=== PATIENT | female | born 1940 | race Caucasian/White ===

== ENCOUNTER → 2020-05-17 08:28 | Outpatient (BNV) | payer MEDICARE, MEDICAID, OTHER, SELFPAY | PROVIDERS: PCP Internal Medicine; Visit Provider Internal Medicine | DX: D72.829 Elevated white blood cell count, unspecified (principal) | CPT/HCPCS: 99213; 99214; G2211 ==

== ENCOUNTER 2020-09-21 13:01 | Outpatient (REF) | payer MEDICARE, MEDICAID, SELFPAY ==
--- NOTE | ~2020-09-21 | XR_ITS ---
EXAMINATION: XR HAND, RIGHT CLINICAL INFORMATION: Diffusion right wrist COMPARISON: None TECHNIQUE: PA, lateral, and oblique views of the right hand. FINDINGS: There is mild reduction of PIP and DIP joint space without bony erosive changes or periarticular spurring. No visible acute fracture or subluxation seen. No abnormality seen involving the first carpometacarpal joint. XR/XR hand RT min 3V IMPRESSION: Mild degenerative changes PIP and DIP joints. No acute fracture or dislocation seen.
--- NOTE | ~2020-09-21 | CT_ITS ---
EXAMINATION: CT ABDOMEN AND PELVIS WITH CONTRAST CLINICAL INFORMATION: Periumbilical swelling, mass/lump COMPARISON: None TECHNIQUE: Multidetector volumetric images were obtained from the superior aspect of the liver through the pubic symphysis following administration 85 mL of Omnipaque 350 intravenous contrast. Sagittal and coronal reformatted images were obtained on the technologist's workstation. Oral contrast: No This CT examination was performed using dose optimization techniques as appropriate, variously including the following: *Automated exposure control *Adjustment of mA and/or kV according to patient size (this includes techniques or standardized protocols for targeted exams where dose is matched to indication/reason for exam; i.e. extremities or head) *Use of iterative reconstruction technique DLP: 329 mGy-cm FINDINGS: LUNG BASES: There is a small right pleural effusion with underlying atelectasis. The left lung bases clear. Heart size is normal. LIVER, GALLBLADDER, AND BILIARY TREE: The liver is normal in size, shape, and attenuation. No focal hepatic lesion or biliary ductal dilatation is present. There are multiple radiopaque gallstones. PANCREAS: Unremarkable. SPLEEN: Unremarkable. ADRENAL GLANDS: Unremarkable. KIDNEYS AND URETERS: The kidneys are normal in size, shape, and attenuation. There is mild cortical thinning of the lower pole of the right kidney. No hydronephrosis, hydroureter, or calculi seen. No perinephric stranding. Bilateral extrarenal kidney pelvis is not seen. BLADDER: Unremarkable. GASTROINTESTINAL TRACT: There is diffuse thickening of the posterior wall of esophagus which could be intraluminal filling defect from food residue, underlying lesion or inflammatory changes. There is scattered stool, diverticuli and gas seen throughout the colon without any significant distention. There is mild thickening of bilateral coronal fascia. Oral contrast opacified small bowel loops are normal caliber. No free air seen. There is mild free fluid visualized in the pelvis. ABDOMINAL WALL: No significant hernia is appreciated. LYMPH NODES: Normal. VASCULAR: The abdominal aorta is normal caliber with an atherosclerotic calcification. PELVIC VISCERA: The large intrapelvic irregular solid mass 12.1 x 8.8 x13.9 cm arising superior to uterus likely extrauterine origin. It may be arising from the left ovary. Previously the same mass measured 7.8 x 4.[address] exam 09/20/2010. The uterus is anteverted and appears unremarkable. OSSEOUS STRUCTURES: No lytic or sclerotic process seen. There is mild degenerative disc changes and spondylosis at T12-L1 disc level. CT/CT abdomen pelvis w con IMPRESSION: 1. Large lobulated mass in the pelvis likely arising from the left ovary depressing the anterior uterus inferiorly and posteriorly. There is some associated fluid surrounding this mass with central hypodensity likely necrosis or edema. Differential diagnosis includes an exophytic uterine mass. 2. Mild constipation. 3. Mild thickening of the bilateral coronal fascia in the paracolic gutter.. 4. Mild constipation with scattered diverticuli throughout the colon. No evidence of diverticulitis. 5. There is filling defect along the posterior wall of the stomach. Question food debris versus underlying lesion. Recommend endoscopy. 6.Small right pleural effusion. 7.Cholelithiasis.
[2020-09-21 14:27] LABS: Basophils Absolute Auto 0.1 X10*3/uL (0.0-0.2); Basophils Percent Auto 0.9 % (0-2); Eosinophils Absolute Auto 0.8 X10*3/uL (0.0-0.4); Hematocrit 37.7 % (37-47); Hemoglobin 11.7 g/dl (12.0-16.0); Imm Gran Abs Auto 0.04 X10*3/uL (0.00-0.03); Imm Gran Pct Auto 0.4 % (0.0-0.4); Lymphocytes Absolute Auto 5.1 X10*3/uL (1.2-4.9); Lymphocytes Percent Auto 44.9 % (20-40); MANUAL DIFF FLAG SCAN; Mean Corpuscular Hemoglobin 25.7 pg (27.0-33.0); Mean Corpuscular Volume 82.7 fL (80-98); Mean Platelet Volume 11.2 fL (9.4-12.3); Monocytes Absolute Auto 0.8 X10*3/uL (0.1-1.2); Monocytes Percent Auto 7.2 % (2-11); Neutrophils Absolute Auto 4.5 X10*3/uL (2.0-8.3); Neutrophils Percent Auto 39.6 % (45-73); Platelet Count 318 X10*3/uL (160-400); Red Blood Count 4.56 X10*6/uL (4.20-5.50); Red Cell Distribution Width 16.7 % (11.0-16.0); SCAN SMEAR FLAG 1; White Blood Count 11.3 X10*3/uL (4.8-10.8)
[2020-09-21 14:48] LABS: SLIDE REVIEW VERIFIED
[2020-09-21 14:50] LABS: Alanine Aminotransferase < 6 U/L (0-31); Albumin Level 3.8 g/dL (3.5-5.0); Alkaline Phosphatase 101 U/L (39-117); Anion Gap 11 (12-20); Aspartate Amino Transferase 11 U/L (5-31); Bilirubin Total 0.3 mg/dL (0.0-1.0); Blood Urea Nitrogen 16 mg/dL (9-16); C Reactive Protein 1.55 mg/dL (< or = 0.50); Calcium 9.7 mg/dL (8.4-10.2); Carbon Dioxide 29 mmol/L (22-29); Chloride 105 mmol/L (96-108); Estimated Glomerular Filt Rate 59; Glucose Random 92 mg/dL (60-115); Potassium 4.5 mmol/L (3.3-5.1); Rheumatoid Factor < 15.0 IU/mL (<15.0); Sodium 140 mmol/L (135-145); Total Protein 7.3 g/dL (6.5-8.0)
[2020-09-21 15:21] LABS: Erythrocyte Sedimentation Rate 28 MM/HR (0-20)
[2020-09-21] MEDS: Barium Sulfate Oral (Mocha) 450 ML ORAL.SUSP 900 ML PO (15:48)
[2020-09-21] MEDS: iohexoL 350 MG/ML 100 ML INFUS..BTL 85 ML IV (15:48)
[2020-09-23 13:06] LABS: Anti Nuclear Antibody Screen NEGATIVE (NEGATIVE)
== END 2020-09-21 13:02 | disposition home or self-care (01) ==
LOC: HO.CT 13:01
PROVIDERS: PCP Internal Medicine; Visit Provider Internal Medicine
DX: R19.05 Periumbilic swelling, mass or lump (principal); M25.431 Effusion, right wrist
CPT/HCPCS: 36415; 73130; 74177; 80053; 84550; 85025; 85652; 86038; 86039; 86140; 86431; Q9967

== ENCOUNTER 2020-11-17 09:52 | Day surgery (SDC) | payer MEDICARE, SELFPAY ==
[2020-11-16 08:47] VITALS: BMI 29.7
--- NOTE | 2020-11-16 09:58 | HO.ANESPROP2 ---
Documented by User: Autumn Dash NP 11/16/20 10:00 HPI - Anesthesia Eval Consult details Narrative: 80yo F for Upper Endoscopy PMFSH Active Problems Active Problems: All Active Problems (Updated 05/17/20 @ 12:32 by Birdie Taveras MD) Leucocytosis (Chronic) Past Medical History Medical History (Updated 05/17/20 @ 12:32 by Birdie Taveras MD) Basal cell carcinoma Chronic kidney disease GERD (gastroesophageal reflux disease) HTN (hypertension) Hypercholesterolemia Leukocytosis Family History Family History (Updated 05/17/20 @ 07:52 by Nancie Henriquez) Father Heart attack Family/Other Colon cancer Other Diabetes Surgical History Surgical History (Updated 05/17/20 @ 08:50 by Birdie Taveras MD) Hx of appendectomy Social History Social History (Updated 05/17/20 @ 08:49 by Nancie Henriquez) Alcohol intake: former Patient Tobacco Use Status: Never used Tobacco Use of substances other than those prescribed or required for medical reasons: No Are you DNR?: No Advance Directives: No Advance Directives Information Provided: Yes Meds Allergies Allergy/AdvReac Type Severity Reaction Status Date / Time No Known Allergies Allergy Unverified 11/18/19 18:01 Home Medications Medication Instructions Recorded Confirmed Last Taken Type amlodipine 2.5 mg tablet 1 tab PO DAILY 05/17/20 05/17/20 Unknown History aspirin 81 mg tablet,delayed 81 mg PO DAILY 05/17/20 05/17/20 Unknown History release omeprazole 20 mg capsule,delayed 1 cap PO DAILY 05/17/20 05/17/20 Unknown History release simvastatin 20 mg tablet 1 tab PO BEDTIME 05/17/20 05/17/20 Unknown History valsartan 40 mg tablet 1 tab PO DAILY 05/17/20 05/17/20 Unknown History Exam Exam Date and Time: November 16, 2020 0958 Height,Weight and Vital Signs: Height 5 ft Weight 68.946 kg Pertinent Lab Results Pertinent Lab Results: Laboratory Tests 09/21/20 09/21/20 13:25 13:25 WBC 11.3 H Hgb 11.7 L Hct 37.7 Plt Count 318 Sodium 140 Potassium 4.5 Chloride 105 Carbon Dioxide 29 BUN 16 Creatinine 0.92 Assessment and Plan Assessment Anesthesia Assessment: Chart Reviewed Documented by User: Nancie Ragsdale MD 11/17/20 10:38 PMF Past Medical History Medical History (Updated 05/17/20 @ 12:32 by Birdie Taveras MD) Basal cell carcinoma Chronic kidney disease GERD (gastroesophageal reflux disease) HTN (hypertension) Hypercholesterolemia Leukocytosis Family History Family History (Updated 05/17/20 @ 07:52 by Nancie Henriquez) Father Heart attack Family/Other Colon cancer Other Diabetes Family history of problems with anesthesia: No Surgical History Surgical History (Updated 05/17/20 @ 08:50 by Birdie Taveras MD) Hx of appendectomy History of Problems with Anesthesia: No Social History Social History (Updated 05/17/20 @ 08:49 by Nancie Henriquez) Alcohol intake: former Patient Tobacco Use Status: Never used Tobacco Use of substances other than those prescribed or required for medical reasons: No Are you DNR?: No Advance Directives: No Advance Directives Information Provided: Yes Meds Allergies Allergy/AdvReac Type Severity Reaction Status Date / Time No Known Allergies Allergy Unverified 11/18/19 18:01 Home Medications Medication Instructions Recorded Confirmed Last Taken Type amlodipine 2.5 mg tablet 1 tab PO DAILY 05/17/20 05/17/20 Unknown History aspirin 81 mg tablet,delayed 81 mg PO DAILY 05/17/20 05/17/20 Unknown History release omeprazole 20 mg capsule,delayed 1 cap PO DAILY 05/17/20 05/17/20 Unknown History release simvastatin 20 mg tablet 1 tab PO BEDTIME 05/17/20 05/17/20 Unknown History valsartan 40 mg tablet 1 tab PO DAILY 05/17/20 05/17/20 Unknown History Exam Airway Mallampati Class: II (Has 3 teeth not loose) TM Dist: >3cm Neck ROM: Full Heart: rrr Lungs: cta Assessment and Plan Assessment Anesthesia Assessment: Anesthesia Plan Discussed and Chart Reviewed Final Anesthetic Review Family History of Problems with Anesthesia: No History of Problems with Anesthesia: No NPO: Yes ASA Class: III Final Preanesthetic Review: No Changes in Pt Med Stat, Meds/Allgs Chart Reviewed and Consent Obtained/Reviewed Patient Risk: Intermediate Procedure Risk: Intermediate Anesthetic Plan Anesthetic Plan: MAC: Disposition: Standard PACU
[2020-11-17 10:31] VITALS: BP 169/68; PULSE 66; RESP 16; TEMP 36.4; O2SAT 97
[2020-11-17] MEDS: Lactated Ringers 1,000 ML 100 ML IVCONT (11:07)
[2020-11-17 11:45] VITALS: BP 137/55; PULSE 63; RESP 16; TEMP 36.3; O2SAT 96
--- NOTE | 2020-11-17 11:50 | PM.OP ---
Brief Operative Note Date of Service: 11/17/20 Pre-op diagnosis: Abnormal CT of stomach, GERD Post-op diagnosis: other (Hiatal hernia, Gastric polyps) Procedure: EGD with biopsies Surgeon: Cipriano Serrano Anesthesia: MAC Was an Coding Technician used for this Procedure?: No Estimated blood loss (mL): 3.0 Pathology: other (A. Gastric polyps) Condition: stable Disposition: PACU
[2020-11-17 12:00] VITALS: BP 155/61; PULSE 56; RESP 16; TEMP 36.3; O2SAT 96
--- NOTE | 2020-11-17 18:16 | OP_ITS ---
SURGEON: Cipriano Serrano MD INDICATIONS: The patient presents for evaluation of abnormal CT scan of her stomach and gastroesophageal reflux. Full consent has been obtained from her for this, including risks of bleeding and perforation. PREOPERATIVE DIAGNOSIS: Abnormal CT scan of the stomach. POSTOPERATIVE DIAGNOSIS: PROCEDURE PERFORMED: Esophagogastroduodenoscopy with biopsies. ESTIMATED BLOOD LOSS: COMPLICATIONS: ANESTHESIA: Monitored anesthesia care. ASSISTANTS: SPECIMENS: POSTOPERATIVE DIAGNOSES: Abnormal AT scan of the stomach, gastric polyps, hiatal hernia. DESCRIPTION OF PROCEDURE: The patient was placed in the left lateral decubitus position. The Olympus video gastroscope was passed in the posterior oropharynx and upper esophagus under direct vision. The scope was passed slowly to the distal esophagus. The gastroesophageal junction appeared normal at 30 cm. There was no sign of any esophagitis nor Devlin's esophagus. The scope entered into the stomach. There was a moderate-sized hiatal hernia. The scope was advanced to pylorus and the duodenum was cannulated to the descending portion. The duodenum including the bulb appeared normal without mass or ulceration. Scope was withdrawn back in the stomach. The gastric antrum and body appeared normal with good peristalsis. The scope was retroflexed visualizing the proximal stomach carefully. There were multiple hyperplastic appearing gastric polyps. There was no sign of any mass or ulceration. In the forward viewing position the gastric polyps were noted as well and there was no sign of any mass nor other mucosal abnormality. Multiple biopsies were obtained from some of the gastric polyps. The scope was withdrawn back into the esophagus. The esophageal mucosa appeared normal. The scope was withdrawn from the patient. She tolerated the procedure well and was returned to the recovery area in stable condition. IMPRESSION: 1. Gastric polyps. 2. Hiatal hernia. PLAN: The results of the biopsies will be checked. At this point, I do not think she will need any further endoscopic nor GI evaluation. She was advised to continue her omeprazole for her reflux and to stay off aspirin for another week. She was advised to follow up with her doctor in [place] in regard to the recent biopsy of the pelvic mass. She will see me on a PRN basis. This has been discussed with her daughter, Shirley. MD NIDIA Monson/MEHUL / [id number] [facility] HOSPITALRuben
== END 2020-11-17 13:20 | disposition home or self-care (01) ==
PROVIDERS: PCP Internal Medicine; Visit Provider Internal Medicine
PROC: 0DJ08ZZ Inspection of Upper Intestinal Tract, Via Natural or Artificial Opening Endoscopic (ICD-10-PCS; CPT 43235; principal; 2020-11-17 11:10)
DX: K21.9 Gastro-esophageal reflux disease without esophagitis (principal); K31.7 Polyp of stomach and duodenum; K44.9 Diaphragmatic hernia without obstruction or gangrene; I10 Essential (primary) hypertension; C44.319 Basal cell carcinoma of skin of other parts of face; R19.00 Intra-abdominal and pelvic swelling, mass and lump, unspecified site; Z79.899 Other long term (current) drug therapy; Z79.82 Long term (current) use of aspirin
CPT/HCPCS: 43239; 88305; 88342

== ENCOUNTER → 2022-04-24 09:36 | Outpatient (REF) | payer MEDICARE, MEDICAID, SELFPAY ==
--- NOTE | 2022-04-24 09:39 | CA_ITS ---
Transthoracic Echocardiogram Patient (Last, First, Middle): Marianela Aranda, Gender: Female Date of : 1940 Age: 82 Procedure Date: 04/24/2022 Procedure Type: Transthoracic Echocardiogram Location: OP Height: 152.4 cm Weight: 68.95 kg BSA: 1.66 m2 Heart Rate: bpm BP: 110 / 60 mmHg Home Fire Alarm Installer: TO Referring MD: Sergio Haskins MD Symptoms: I10 HTN I42.9 CARDIOMYOPATHY Study Quality: Technically Difficult/multiple IV attempts ECG Rhythm: Sinus Conclusions: - The left ventricular systolic function is normal. The visually estimated ejection fraction is between 55-60%. - Aortic valve sclerosis but no significant stenosis. - Unable to administer contrast due to lack of IV after multiple times. Findings Procedure Information The quality of the study was technically difficult. The study quality is limited by patients body habitus. Left Ventricle Normal left ventricular cavity size. There is normal left ventricular wall thickness. The left ventricular systolic function is normal. The visually estimated ejection fraction is between 55-60%. There is paradoxical septal motion consistent with a left bundle branch block. Diastolic function is normal for age. Right Ventricle Normal right ventricular cavity size and systolic function. Atria Both atria are normal in size. Aortic Valve There is a normal trileaflet aortic valve. There is mild calcification of the aortic valve. The mean gradient is 8 mmHg. The aortic valve area is 1.50 cm2. There is trace (trivial) aortic valve regurgitation. No more than mild aortic stenosis. Mitral Valve The mitral valve appears normal. There is trace mitral valve regurgitation. There is no mitral valve stenosis. Pulmonic Valve The pulmonic valve is likely normal. Tricuspid Valve There is trace tricuspid valve regurgitation. There is no evidence of pulmonary hypertension. Great Vessels The asc aorta is normal in size. Venous The inferior vena cava is normal in size and collapses greater than 50% with inspiration. Pericardium/Pleural There is no evidence of pericardial effusion. Prior Study Comparison No prior study available for comparison. Measurements 2D Linear Measurements IVSd: 1.01 0.6-0.9/0.6-1.0 cm LVIDd: 5.01 3.9-5.3/4.2-5.9 cm LVIDd Index: 3.02 2.4-3.2/2.2-3.1 cm/m2 LVIDs: 3.60 2.0-3.6 cm LVPWd: 1.00 0.7-1.1 cm LA Diam: 3.50 2.7-3.8/3.0-4.0 cm LAIDs Index: 2.11 1.5-2.3 cm/m2 LV Mass: 229.00 67-162/88-224 g LV Mass Index: 137.95 43-95/49-115 g/m2 LVOT Diam: 1.90 3.0+(-)1.3 cm Mitral Valve MV VTI: 0.36 MV Pk Demian: 1.16 MV Mn Demian: 0.64 MV Pk Grad: 5.00 MV Mn Grad: 2.00 MV Pk E: 0.85 MV PK A: 1.11 MV Decel Time: 197.00 E/A: 0.80 E'Lateral: 7.29 E'Medial: 3.48 E/E' Med: 24.40 E/E' Lat: 11.70 PHT: 58.00 MVA PHT: 3.79 MVA Continuity: 1.67 Decel Mcintosh: 4.32 Aortic Valve AoV Pk Demian: 2.10 AoV Mn Demian: 1.28 AoV VTI: 0.41 AoV Pk Grad: 18.00 Aov Mn Grad: 8.00 JASON Cont.VTI: 1.50 LVOT LVOT Pk Demian: 0.88 LVOT Mn Demian: 0.62 LVOT VTI: 0.21 LVOT Pk Grad: 3.00 LVOT Mn Grad: 2.00 LVOT Diam: 1.90 LVOT Area: 2.84 Diastolic Function MV Pk E: 0.85 MV Pk A: 1.11 E/A: 0.80 E'Medial: 3.48 E/E' Med: 24.40 E' Laterial: 7.29 E/E' Lat: 11.70 Right Ventricle TAPSE (mm): 24.80 TVS' Demian: 11.20 Tricuspid Valve TR Pk Demian: 2.84 TR Pk Grad: 32.00 Great Vessels Aorta Sinus of Valsalva: 2.89 2.0-3.[address] Ridge: 2.29 1.7-3.4 cm Ao Asc: 3.60 2.1-3.4 cm Updated in Other Vendor System with Status of Final Sigifredo Hannon MD electronically signed on 04/25/2022 4:55:01 PM with status of Final
== END ==
LOC: HO.CARD 09:36
PROVIDERS: PCP Internal Medicine; Visit Provider Internal Medicine Cardiovascular Disease
DX: I10 Essential (primary) hypertension (principal); I42.9 Cardiomyopathy, unspecified
CPT/HCPCS: 93306

== ENCOUNTER 2023-12-03 09:19 | Outpatient (REF) | payer MEDICARE, MEDICAID, SELFPAY ==
[2023-12-03 11:14] LABS: Basophils Absolute Auto 0.1 X10*3/uL (0.0-0.2); Basophils Percent Auto 1.1 % (0-2); Eosinophils Absolute Auto 0.4 X10*3/uL (0.0-0.4); Eosinophils Percent Auto 3.5 % (0-4); Hematocrit 32.9 % (37.0-47.0); Imm Gran Abs Auto 0.03 X10*3/uL (0.00-0.03); Imm Gran Pct Auto 0.3 % (0.0-0.4); Lymphocytes Absolute Auto 5.4 X10*3/uL (1.2-4.9); Lymphocytes Percent Auto 49.6 % (20-40); MANUAL DIFF FLAG SCAN; Mean Corpuscular HGB Conc 30.4 g/dl (31.0-35.0); Mean Corpuscular Hemoglobin 21.7 pg (27.0-33.0); Mean Corpuscular Volume 71.4 fL (80.0-98.0); Mean Platelet Volume 10.2 fL (9.4-12.3); Monocytes Absolute Auto 0.7 X10*3/uL (0.1-1.2); Monocytes Percent Auto 6.8 % (2-11); Neutrophils Absolute Auto 4.2 x10*3/uL (2.0-8.3); Neutrophils Percent Auto 38.7 % (45-73); Platelet Count 457 X10*3/uL (160-400); Red Blood Count 4.61 X10*6/uL (4.20-5.50); Red Cell Distribution Width 20.3 % (11.0-16.0); SCAN SMEAR FLAG 1; White Blood Count 10.9 X10*3/uL (4.8-10.8)
[2023-12-03 11:30] LABS: Alanine Aminotransferase 6 U/L (0-31); Albumin Level 3.9 g/dL (3.5-5.0); Anion Gap 13 (12-20); Aspartate Amino Transferase 11 U/L (5-31); Bilirubin Direct 0.2 mg/dL (0.0-0.5); Bilirubin Total 0.5 mg/dL (0.0-1.0); Blood Urea Nitrogen 16 mg/dL (9-16); Calcium 9.9 mg/dL (8.4-10.2); Carbon Dioxide 26 mmol/L (22-29); Chloride 104 mmol/L (96-108); Cholesterol 167 mg/dL (<200); Estimated Glomerular Filt Rate 60; Glucose Random 110 mg/dL (60-115); Potassium 4.7 mmol/L (3.3-5.1); Sodium 138 mmol/L (135-145); Total Protein 7.7 g/dL (6.5-8.0); Triglycerides 102 mg/dL (<150)
[2023-12-03 11:31] LABS: Alkaline Phosphatase 110 U/L (39-117); HDL Cholesterol 60 mg/dL (>40); LDL Cholesterol Calculated 87 mg/dL (<100)
[2023-12-03 11:52] LABS: SLIDE REVIEW VERIFIED
[2023-12-03 12:00] LABS: Reflex LDLD? No
== END 2023-12-03 09:20 | disposition home or self-care (01) ==
LOC: HO.HHCL 09:19
PROVIDERS: Visit Provider Internal Medicine
DX: Z00.00 Encounter for general adult medical examination without abnormal findings (principal); I10 Essential (primary) hypertension
CPT/HCPCS: 36415; 80048; 80061; 80076; 85025

== ENCOUNTER 2024-04-26 08:46 | Outpatient (REF) | payer MEDICARE, MEDICAID, SELFPAY ==
--- OUTSIDE RECORDS SUMMARY | 2024-04-26 09:15 | XMS_ITS | Clinical Summary ---
Author Organization [employer] Address [address] [facility] [address] [place] [address] Care Team Providers Care Resource Conservation Manager Name Role Phone Yury Klein MD Primary Care Provide r Allergies Active Allergy Reactions Criticality Noted Date Comments Lisinopril Cough 02/13/2017 Medications celecoxib (CeleBREX) 100 MG capsuleIndication s:Pain TAKE 1 CAPSULE BY MOUTH EVERY DAY 30 capsule 3 Active furosemide (Lasix) 20 MG tablet Take 10 mg by mouth in the morning. 2 Active Aspirin EC Adult Low Dose 81 MG EC tablet TAKE 1 TABLET BY MOUTH DAILY IN THE MORNING 90 tablet 3 4 Active amLODIPine (Norvasc) 10 MG tablet TAKE 1 TABLET BY MOUTH ONCE DAILY 90 tablet 3 4 Active acetaminophen (Tylenol 8 Hour) 650 MG ER tabletIndications :Pain TAKE 1 TABLET BY MOUTH EVERY 8 HOURS NEEDED FOR MILD OR MODERATE PAIN DO NOT BREAK, CRUSH, DISSOLVE OR CHEW 90 tablet 2 4 Active omeprazole (PriLOSEC) [address] capsule TAKE 1 CAPSULE BY MOUTH EVERY DAY BEFORE A MEAL 90 capsule 4 Active valsartan (Diovan) 80 MG tabletIndications :Essential hypertension TAKE 1 TABLET BY MOUTH EVERY DAY 30 tablet 3 5 Active Active Problems Problem Noted Date Diagnosed Date Elevated blood sugar level 12/09/2023 Assessment & Plan (03/09/2024 11:59 AM EST): FBS 110 Will repeat Assessment & Plan (12/09/2023 11:58 AM EDT): FBS 110 Will repeat in 3 months Iron deficiency anemia 12/09/2023 Assessment & Plan (03/09/2024 11:59 AM EST): Last visit I recommended to Obtain iron studies, B12 and folate, she did not do it, ordered again Seen in the apst by Hematology for lymphocytosis that has since resolved Assessment & Plan (12/09/2023 12:01 PM EDT): New onset Obtain iron studies, B12 and folate Seen in the apst by Hematology for lymphocytosis that has since resolved Routine physical examination 05/23/2022 Assessment & Plan (05/27/2023 10:43 AM EDT): Pt here for a routine physical exam, exam unchanged Preventative health care (V70.0). Mammogram: Given age ok to stop Pap Smear: NL: 03/06/2010 with cervical polyp pt elected to stop screening Colonoscopy: NL : 10/18/2010 (external and internal hemorrhoids 10 yr f/u ,recommended. Pt would like to stop, given the fact that she is over 80 ok to stop Vaccines: Td: 09/27/2020 Pneumovax: 03/30/2010 Prevnar: 11/03/2014 Zoster: 09/27/2014 Dexa scan: 12/19/2011 Normal T-score of -0.8 Assessment & Plan (05/23/2022 11:19 AM EDT): Pt here for a routine physical exam, exam unchanged Preventative health care (V70.0). Mammogram: Given age ok to stop Pap Smear: NL: 03/06/2010 with cervical polyp pt elected to stop screening Colonoscopy: NL : 10/18/2010 (external and internal hemorrhoids 10 yr f/u ,recommended. Pt would like to stop, given the fact that she is over 80 ok to stop Vaccines: Td: 03/30/2010, needs booster Pneumovax: 03/30/2010 Prevnar: 11/03/2014 Zoster: 09/27/2014 Dexa scan: 12/19/2011 Normal T-score of -0.8 Lymphocytosis 05/23/2022 Assessment & Plan (05/23/2022 12:27 PM EDT): Under the care of mechanical engineering specialist Dr. Birdie Taveras. Last note on record 11/17/2019 She is being evaluated to r/o indolent Chronic Myeloproliferative disorder. 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 On exam she had a palpable superficial mass in her periumbilical area CT of her abdomen showed: Large lobulated mass in the pelvis likely arising from the left ovary depressing the anterior uterus inferiorly and posteriorly. There is some associated fluid surrounding this mass with central hypodensity likely necrosis or edema. Differential diagnosis includes an exophytic uterine mass. Pt eventually underwent BRITTANY and BSOO by Dr Rosa correa 12/27/2020. Pathology showed a Fibrothecoma ( bening ) Gastric polyp 04/07/2022 Assessment & Plan (04/09/2022 10:52 AM EST): CT of Abdomen 2020 showed an incidental finding of: There is filling defect along the posterior wall of the stomach. Question food debris versus underlying lesion. Recommend endoscopy. Pt was eventually seen by Dr. Serrano and underwent an EGD 11/17/2020 it showed a hiatal hernia and gastric polyps he recommended no further GI evaluation. The pathology was benign Bradycardia 06/30/2018 Actinic keratosis 02/06/2018 Essential hypertension 12/06/2014 Assessment & Plan (03/09/2024 12:08 PM EST): Pt here for a f/u BP today elevated she is on a regimen of: Amlodipine 10 mg po daily, Diovan 40 mg po daily and Furosemide 20 mg po daily Most recent electrolytes, Bun and Creatinine done on: 12/03/2023 were within normal limits. Plan: Increase Valsartan to 80 mg po daily F/u 2 months patient advised to adhere to a low sodium diet, encouraged about medication compliance Assessment & Plan (12/09/2023 11:51 AM EDT): Pt here for a f/u BP today controlled she is on a regimen of: Amlodipine 10 mg po daily, Diovan 40 mg po daily and Furosemide 20 mg po daily Most recent electrolytes, Bun and Creatinine done on: 12/03/2023 were within normal limits. Plan: Continue current regimen F/u 4 months patient advised to adhere to a low sodium diet, encouraged about medication compliance Assessment & Plan (05/27/2023 10:41 AM EDT): Pt here for a f/u BP today controlled she is on a regimen of: Amlodipine 10 mg po daily, Diovan 40 mg po daily and Furosemide 20 mg po daily Most recent electrolytes, Bun and Creatinine done on: 05/20/2022 were within normal limits. Will repeat Plan: Continue current regimen F/u 4 months patient advised to adhere to a low sodium diet, encouraged about medication compliance Assessment & Plan (05/07/2022 9:58 AM EST): Pt here for a f/u BP today stable she is on a regimen of: Amlodipine 10 mg po daily, Diovan 40 mg po daily and Furosemide 20 mg po daily Most recent electrolytes, Bun and Creatinine done on: 05/25/2020 were within normal limits. 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 Pt with c/o new lesion right cheek Pt states presented back in August Denies any increase in size, denies any bleeding Exam does seem suggestive of Basal Cell Skin CA Referral placed with Dr Mederos back in 12/03/2023. Today they are telling me the appointment is scheduled for July 2024 Assessment & Plan (12/09/2023 12:33 PM EDT): Images from the original note were not included. Pt with c/o new lesion right cheek Pt states presented back in August Denies any increase in size, denies any bleeding Exam does seem suggestive of Basal Cell Skin CA Referral placed with Dr Mederos back in 12/03/2023. Today I asked by DORINA to contact their office to ensure patient receives an appointment. Assessment & Plan (05/23/2022 8:49 AM EDT): Pt is s/p Mohs resection 04/2021 She was under the care of Housekeeper And Laundry Assistant Dr Mckinney ( [phone])and subsequently Dr. Akers Left bundle branch block 01/03/2010 Assessment & Plan (05/27/2023 10:42 AM EDT): Chronic LBBB, seen by [facility] last 12/27/2023 Needs to avoid BB due to bradycardia Assessment & Plan (05/23/2022 8:43 AM EDT): Chronic LBBB, seen by [facility] last 11/08/2013 Needs to avoid BB due to bradycardia Chronic kidney disease, stage II (mild) 03/03/18 60 Gastroesophageal reflux disease 03/03/1959 Hyperlipidemia 03/03/1959 Assessment & Plan (03/09/2024 12:00 PM EST): Patient with elevated lipids. Most recent lipid profile from: Lab Results Component Value Date TRIG 102 12/03/2023 TRIG 109 05/20/2022 CHOL 167 12/03/2023 LDLCHOLCAL 87 12/03/2023 HDL 60 12/03/2023 Currently not on any statin . For now will continue with current regimen advised to try to adhere to a low cholesterol diet, counseled and educated about diet and exercise Assessment & Plan (12/09/2023 11:54 AM EDT): Patient with elevated lipids. Most recent lipid profile from: Lab Results Component Value Date TRIG 102 12/03/2023 TRIG 109 05/20/2022 CHOL 167 12/03/2023 LDLCHOLCAL 87 12/03/2023 HDL 60 12/03/2023 Currently not on any statin . For now will continue with current regimen advised to try to adhere to a low cholesterol diet, counseled and educated about diet and exercise Assessment & Plan (05/27/2023 10:42 AM EDT): Patient with elevated lipids. Most recent lipid profile from: 05/20/2022 shows a total cholesterol of: 182 triglycerides of: 109 HDL of: 61 and LDL of: 100 Currently on a regimen of: Simvastatin 20 mg po q pm . For now will continue with current regimen Will repeat Lipid profile advised to try to adhere to a low cholesterol diet, counseled and educated about diet and exercise Assessment & Plan (05/23/2022 8:47 AM EDT): Patient with elevated lipids. Most recent lipid profile from: 05/20/2022 shows a total cholesterol of: 182 triglycerides of: 109 HDL of: 61 and LDL of: 100 Currently on a regimen of: Simvastatin 20 mg po q pm . For now will continue with current regimen advised to try to adhere to a low cholesterol diet, counseled and educated about diet and exercise Resolved Problems Problem Noted Date Diagnosed Date Resolved Date COVID-19 04/09/2022 05/23/2022 Assessment & Plan (04/09/2022 12:47 PM EST): Pt with new onset of non productive cough and generalized malaise. Exam wnl, afebrile, lungs clear, vital signs stable pulse oxymetry normal Covid-19 positive. Plan: Recommended isolation, contact precautions, Paxlovid f/u if symptoms do not improve or worsen Pt advised to decrease her Amlodipine by 50% x 8 days Instructions written and given to granddaughter who verbalized understanding as well as the patient Chest x-ray ordered Subacute cough 04/09/2022 05/23/2022 Assessment & Plan (04/09/2022 12:47 PM EST): Pt with new onset of non productive cough and generalized malaise. Exam wnl, afebrile, lungs clear, vital signs stable pulse oxymetry normal Covid-19 positive. Plan: Recommended isolation, contact precautions, Paxlovid f/u if symptoms do not improve or worsen Pt advised to decrease her Amlodipine by 50% x 8 days Instructions written and given to granddaughter who verbalized understanding as well as the patient Encounters Date Type Department Care Team Description 03/09/2024 11:15 AM EST Office Visit [facility] [address] [place] [address] Yury Klein MD Essential hypertension (Primary Dx); Iron deficiency anemia, unspecified iron deficiency anemia type; Basal cell carcinoma of cheek; Elevated blood sugar level; Mixed hyperlipidemia 03/09/2024 Travel 02/26/2024 Telephone [facility] [address] [place] [address] Yury Klein MD Chart Prep 02/01/2024 Refill [facility] [address] [place] [phone] Yury Klein MD from Last 3 Months Immunizations Name Administration Dates Next Due Influenza injectable quadriv alent IIV4 with preservative 02/13/2017 Influenza injectable quadriv alent preservative free 01/10/2022,04/27/2019,04/20/2015 Influenza, High Dose Seasona l, Preservative Free 12/09/2023,11/27/2017 Influenza, IIV3, injectable 11/02/2019, 1 Influenza, Split (incl. lucas fied surface antigen) 12/02/2011 Pfizer Covid-19 Vaccine 12+ 12/09/2023 Pneumococcal Conjugate PCV 13 11/03/2014 Pneumococcal Polysaccharide PPSV23 03/30/2010 TD (adult), 2 Lf tetanus tox oid, preservative free, adsorbed 03/30/2010 Tdap 09/27/2020 Zoster, live 09/27/2014 Social History Tobacco Use Types Packs/Day Years Used Date Smoking Tobacco: Never Passive Smoke Exposure: Never Smokeless Tobacco: Never Tobacco Cessation:Counseling Given: Not Answered Depression Answer Date Recorded Patient Health Questionnaire-9 Score 0 05/27/2023 Patient Health Questionnaire-9 Score 0 05/27/2023 Last PHQ-9: Questionnaire Data Not on file 0 05/27/2023 Housing Stability Answer Date Recorded What is your housing situation today? I have [facility] 05/20/[address] you li ve. Do you have problems with any of the following? None of the above 05/20/2023 Food Insecurity Answer Date Recorded Within the past 12 months, y ou worried that your food would run out before you got money to buy more: Sometimes True 2023 Within the past 12 months,th e food you bought just didn't last and you didn't have enough money to get more: Sometimes True 05/20/2023 Transportation Answer Date Recorded In the past 12 months, has l ack of transportation kept you from medical appts, meetings, work or from getting things needed for daily living? No 05/20/2023 Utilities Answer Date Recorded In the past 12 months, has t he electric, gas, oil or water company threatened to shut off services in your home? No 05/20/2023 Depression Answer Date Recorded Patient Health Questionnaire-2 Score 0 05/27/2023 Internet Access Answer Date Recorded Internet Access Q1 Yes 11/03/2023 Internet Access Q2 Not on file 11/03/2023 Comments Unknown Sex and Gender Information Value Date Recorded Sex Assigned at Female 12/31/2021 10:21 AM EDT Legal Sex Female 10:21 AM EDT Gender Identity Female 12/31/2021 10:21 AM EDT Sexual Orientation Straight 12/31/2021 10 :21 AM EDT Last Filed Vital Signs Vital Sign Reading Time Taken Comments Blood Pressure 160/78 03/09/2024 11:12 AM EST Pulse 60 03/09/2024 11:12 AM EST Temperature 36.1 ??C (96.9 ??F) 03/09/2024 11:[address] Respiratory Rate 20 03/09/2024 11:12 AM EST Oxygen Saturation 98% 03/09/2024 11:12 AM EST Inhaled Oxygen Concentration - - Weight 69 kg (152 lb 3.2 oz) 03/09/2024 11:12 AM EST Height 152.4 cm (5') 03/09/2024 11:12 AM EST Body Mass Index 29.72 03/09/2024 11:12 AM EST Plan of Treatment Upcoming Encounters Date Type Department Care Team (Late st Contact Info) Description 05/11/2024 10:15 AM EDT Office Visit [facility] [address] [place] [address] Yury Klein MD [address] [place] [address] Health Maintenance Due Date Last Done Comments Derm Melanoma Skin Check 1940 Zoster Vaccines (2 of 3) 11/22/2014 09/27/2014 RSV Patients and Patients Aged 60 years or older (1 - 1-dose 75+ series) 02/24/2015 SDOH Screening 05/19/2024 05/20/2023 Depression Screening 05/26/2024 05/27/2023, 05/27/19 24 Alcohol/Substance Use Screening 12/08/2024 12/09/2023 Diabetes: Hemoglobin A1C 03/09/2025 03/09/2024 Tobacco Screening 03/09/2025 03/09/2024 Lipid Panel 12/02/2028 12/03/2023, 05/02, 05/25/2020 DTaP/Tdap/Td Vaccines (2 - Td or Tdap) 09/27/2030 09/27/2020, 03/30/2010 Pneumococcal Vaccine: 50+ Years Completed 11/03/2014, 03/30/2010 COVID-19 Vaccine Completed 12/09/2023, 12/2021, 03/12/2021, Additional history exists Influenza Vaccine Completed 12/09/2023, , 11/02/2019, Additional history exists HIB Vaccines Aged Out No longer eligi ble based on patient's age to complete this topic HPV Vaccines Aged Out No longer eligi ble based on patient's age to complete this topic Hepatitis A Vaccines Aged Out No long er eligible based on patient's age to complete this topic Hepatitis B Vaccines Aged Out No long er eligible based on patient's age to complete this topic IPV Vaccines Aged Out No longer eligi ble based on patient's age to complete this topic Meningococcal Vaccine Aged Out No leandro joaquin eligible based on patient's age to complete this topic RSV under 20 months Aged Out No longe r eligible based on patient's age to complete this topic Rotavirus Vaccines Aged Out No longer eligible based on patient's age to complete this topic Procedures Procedure Name Priority Date/Time Associated Diagnosis Comments POCT GLYCATED HEMOGLOBIN, TOTAL Routine 03/09/2024 12:04 PM EST Elevated blood sugar level POCT GLUCOSE Routine 03/09/2024 12:04 PM EST Elevated blood sugar level LIPID PANEL WITH REFLEX TO DIRECT LDL Routine 12/03/2023 9:25 AM EDT Essential hypertension from Last 3 Months or Most Recently Relevant to Health Maintenance Results * (ABNORMAL) POCT HGB A1C (03/09/2024 12:04 PM EST) Hemoglobin A1C 6.1(A) 4.0 - 6.0 % QC Media Lot # [id number] Lot# Expiration Date ,793 Blood 03/09/2024 12:0 4 PM EST Yury Terrell MD POINT OF CARE TEST EN TER/EDIT ORDERABLES Final Result * POCT Glucose (03/09/2024 12:04 PM EST) Glucose Blood, POC 106 60 - 200 mg/dL QC Media Lot # [id number] Lot# Expiration Date [id number] Blood Capillary blood specimen / Unknown 03/09/2024 12:04 PM EST Yury Terrell MD POINT OF CARE TEST EN TER/EDIT ORDERABLES Final Result * Lipid Panel with Reflex to Direct LDL (12/03/2023 9:25 AM EDT) Triglycerides 102 <150 mg/dL [facility] Comment:Desirable Triglyceri de: less than 150 mg/dLBorderline High Triglyceride 150-199 mg/dLHigh Triglyceride: 200-499 mg/dLVery High Triglyceride: greater than or equal to 5OO mg/dL Cholesterol 167 <200 mg/dL [facility] Comment:Desirable Cholestero l: less than 200 mg/dLBorderline High Cholesterol: 200-239 mg/dLHigh Cholesterol: greater than 239 mg/dL LDL Cholesterol Calculated 87 <100 mg/dL [facility] Comment:Desirable LDL: less than 100 mg/dLNear Optimal/Above Optimal LDL: 110- 129 mg/dLBorderline High LDL: 130-159 mg/dLHigh LDL: 160-189 mg/dLVery High LDL: greater than or equal to 190 mg/dL HDL Cholesterol 60 >40 mg/dL [facility] Comment:Desirable HDL: great er than 40 mg/dL Note: This HDL assay may give artificially low results in patients with liver disease. Blood 12/03/2023 9:25 AM EDT 12/03/2023 11:00 AM EDT us Yury Terrell MD LAB BLOOD ORDERABLES Final Result [facility] [address] [place] [address] [phone] from Last 3 Months or Most Recently Relevant to Health Maintenance Insurance [facility] [employer] Care Teams Resource Conservation Manager Relationship Specialty Start Date End Date Yury Klein MD [address] [place] [phone] PCP - General Internal Medicine 09/20/14
--- OUTSIDE RECORDS SUMMARY | 2024-04-26 09:15 | XMS_ITS | Encounter Summary ---
Author Organization [facility] Address [address] [place] [address] [address] [place] [address] Care Team Providers Care Junior Account Executive Name Role Phone Yury Klein MD Primary Care Provide r Encounter Details Date Type Department Care Team (Late st Contact Info) Description 04/04/2022 Orders Only [facility] [address] [place], [place] [phone] Cailin Perez LPN Social History Tobacco Use Types Packs/Day Years Used Date Smoking Tobacco: Never Assessed Comments Unknown Sex and Gender Information Value Date Recorded Sex Assigned at Female 12/31/2021 10:21 AM EDT Legal Sex Female 10:21 AM EDT Gender Identity Female 12/31/2021 10:21 AM EDT Sexual Orientation Straight 12/31/2021 10 :21 AM EDT documented as of this encounter Plan of Treatment Upcoming Encounters Date Type Department Care Team (Late st Contact Info) Description 05/11/2024 10:15 AM EDT Office Visit [facility] [address] [place] [phone] Yury Klein MD [address] [place] [phone] documented as of this encounter Visit Diagnoses Not on filedocumented in this encounter Care Teams Junior Account Executive Relationship Specialty Start Date End Date Yury Klein MD [address] [place] [phone] PCP - General Internal Medicine 09/20/14 documented as of this encounter
--- OUTSIDE RECORDS SUMMARY | 2024-04-26 09:15 | XMS_ITS | Clinical Summary ---
Author Organization [facility] Address [address] [place] [address] Care Team Providers Care Office Runner Name Role Phone Unavailable Primary Care Provider Unavailabl e Surgical History Surgery Date Site/Laterality Comments APPENDECTOMY 1965 PROCEDURE: HISTORICAL APPENDECTOMY OTHER SURGICAL HISTORY PROCEDURE: ME EXCISION MALIGNANT LESION F/E/E/N/L 0.5 CM/<; COMMENT: Basal cell carcinoma OTHER SURGICAL HISTORY 12/27/2020 PROCEDURE: ME TOTAL ABDOMINAL HYSTERECT W/WO RMVL TUBE OVARY; COMMENT: Exploratory laparotomy, total abdominal hysterectomy, bilateral salpingo-oophorectomy Medical History Medical History Date Comments Hypertension 09/14/2012 DX:Hypertension Historical Medical DX 09/14/2012 DX:Hyperli pidemia LDL goal < 130 LBBB (left bundle branch block) 09/14/2012 DX:LBBB (left bundle branch block) Asthma 09/14/2012 DX:Asthma GERD (gastroesophageal reflux disease) 09/14/2012 DX:GERD (gastroesophageal reflux disease) Family History Medical History Relation Name Comments Colon cancer Other Grandson Heart attack Sister 1 fatal CABG Sister 2 Relation Name Status Comments Other Grandson Sister 1 Sister 2 Sister 3 Social History Tobacco Use Types Packs/Day Years Used Date Smoking Tobacco: Never Alcohol Use Standard Drinks/Week Comments Not Asked 0 (1 standard drink = 0.6 oz pur e alcohol) Comments Unknown Sex and Gender Information Value Date Recorded Sex Assigned at Not on file Legal Sex Female 1:15 PM EST Gender Identity Not on file Sexual Orientation Not on file Obstetrics History Plan of Treatment Health Maintenance Due Date Last Done Comments DTaP,Tdap,and Td Vaccines (1 - Tdap) 02/24/1959 Pneumococcal Vaccine: 50+ Ye ars (1 of 1 - PCV) 02/24/1990 Zoster Vaccines (1 of 2) 02/24/1990 RSV Immunization Patients 60 + Years Old (1 - 1-dose 75+ series) 02/24/2015 COVID-19 Vaccine (2023-2 5 season) 2023 Influenza Vaccine (#1) 2023 HIB Vaccines Aged Out No longer eligi [...] on patient's age to complete this topic MMR Vaccines Aged Out No longer eligi ble based on patient's age to complete this topic Meningococcal ACWY Vaccine Aged Out N o longer eligible based on patient's age to complete this topic Meningococcal B Vacine Aged Out No lo nger eligible based on patient's age to complete this topic RSV Immunization Patients Un cata 20 months Aged Out No longer eligible b ased on patient's age to complete this topic Varicella Vaccines Aged Out No longer eligible based on patient's age to complete this topic
--- OUTSIDE RECORDS SUMMARY | 2024-04-26 09:15 | XMS_ITS | Encounter Summary ---
Author Organization [employer] Address [address] [place] [address] Care Team Providers Care Processing Analyst Name Role Phone Yury Klein MD Primary Care Provide r Reason for Visit * Reason Comments Med Refill Encounter Details Date Type Department Care Team ([facility] st Contact Info) Description 12/30/2022 Refill [facility] MEDICINE [address], [place] [phone] Yury Klein MD [address] [place], [place] [phone] Social History Tobacco Use Types Packs/Day Years Used Date Smoking Tobacco: Never Smokeless Tobacco: Never Depression Answer Date Recorded Patient Health Questionnaire-9 Score 0 04/09/2022 Housing Stability Answer Date Recorded What is your housing situation today? I have [address] 12/30/[address] you li ve. Do you have problems with any of the following? None of the above 12/30/2022 Food Insecurity Answer Date Recorded Within the past 12 months, y ou worried that your food would run out before you got money to buy more: Never True 12/30/2022 Within the past 12 months,th e food you bought just didn't last and you didn't have enough money to get more: Never True Transportation Answer Date Recorded In the past 12 months, has l ack of transportation kept you from medical appts, meetings, work or from getting things needed for daily living? No 12/30/2022 Utilities Answer Date Recorded In the past 12 months, has t he electric, gas, oil or water company threatened to shut off services in your home? No 12/30/2022 Depression Answer Date Recorded Patient Health Questionnaire-2 Score 0 04/09/2022 Comments Unknown Sex and Gender Information Value [...] Description 05/11/2024 10:15 AM EDT Office Visit [facility] MEDICINE [address] [place] [address] Yury Klein MD [address] [place] [address] documented as of this encounter Visit Diagnoses Not on filedocumented in this encounter Additional Health Concerns Assessment Noted Time PHQ-9 Depression Total Score: 0 04/09/19 23 11:00 AM EST documented as of this encounter Care Teams Processing Analyst Relationship Specialty Start Date End Date Yury Klein MD [address] [place] [address] PCP - General Internal Medicine 09/20/14 documented as of this encounter
--- OUTSIDE RECORDS SUMMARY | 2024-04-26 09:15 | XMS_ITS | Patient Health Record ---
Author Organization [facility] Address [address] [place] [address] Care Team Providers Care Notereader Name Role Phone Kun Terrell MD, Yury Primary Care Provide r Cipriano Preston Unavailable [phone] ALLERGIES No Known Allergies REASON FOR REFERRAL No Information MEDICATIONS Medication SIG (Take, Route, Frequency, Duration) Notes Start Date End Date Status Aspirin Low Dose 81 MG TAKE 1 TABLET BY MOUTH EVERY DAY Oral for 90 Active Omeprazole 20 MG Oral for 90 A ctive amLODIPine Besylate 10 MG Oral for 30 Active Valsartan 40 MG Oral for 90 Ac tive Furosemide 20 MG Oral for 60 A ctive IMMUNIZATIONS Vaccine Route Administration Date Status Comme nts Influenza Unknown 11/02/2019 Administered SOCIAL HISTORY Tobacco Use: Social History Observation Description Date Details (start date - stop date) Never Smoker NA - NA Sex Assigned At : Social History Observation Description Sex Assigned At Unknown Tobacco Use/Smoking Question Answer Notes Patient is a nonsmoker Alcohol Screen Question Answer Notes Did you have a drink containing alcohol in the p ast year? No Points 0 Interpretation Negative PROBLEMS Problem Type ICD Code Onset Dates Problem Status W/U Status Risk SNOMED Code Notes Problem Gastric polyp (K31.7) Active confirmed Gastric polyp (90859935) Problem Abnormal CT scan, stomach (R93.3) Active confirmed 908218502 Problem Gastroesophageal reflux (K21.9) Active confirmed Esophageal reflux finding (633354694) Problem Gastroesophageal reflux disease, unspecified whether esophagitis present (K21.9) Active confirmed [id number] PLAN OF TREATMENT Pending Test Test Name Order Date Pathology 11/17/2020 Future Test Test Name Order Date UPPER GI ENDOSCOPY 11/09/2020 Insurance Providers Payer Name Payer Address Payer Phone Subscriber Number Group Number Insured Name Patient Relationship to Insured Coverage Start Date Coverage End Date [facility] Medicare Advantage Plan [address] [address] [place] [address] [id number] RUPESH OBRIENIVIDAD Self - patient is the insured MEDICAL (GENERAL) HISTORY Medical History History ICD Code Hypertension Urinary incontinence Skin cancer Gallstones seen on CT scan -asymptomatic. Discussed potential sympotms and need for surgical consultation with her and her family at the 11/09/20 OV Denies IA,DM,CVA,Lung disease,renal dise ase GERD Pelvic mass near left ovary- -s/p biopsy at [facility] on 11/07/2020 and has F/U plans with [employer] MD at [facility] Reports 2 negative colonoscopies in the past Surgical History Surgery Date(Month/Year) Appendectomy 1965 Skin cancer on face--has repeat surgery coming up on 01/02/20212015
[2024-04-26 11:18] LABS: MANUAL DIFF FLAG NO
[2024-04-26 11:20] LABS: Basophils Absolute Auto 0.1 X10*3/uL (0.0-0.2); Basophils Percent Auto 0.9 % (0-2); Eosinophils Absolute Auto 0.4 X10*3/uL (0.0-0.4); Eosinophils Percent Auto 3.2 % (0-4); Hemoglobin 8.6 g/dl (12.0-16.0); Imm Gran Abs Auto 0.03 X10*3/uL (0.00-0.03); Imm Gran Pct Auto 0.3 % (0.0-0.4); Lymphocytes Absolute Auto 4.9 X10*3/uL (1.2-4.9); Lymphocytes Percent Auto 41.9 % (20-40); Mean Corpuscular HGB Conc 29.7 g/dl (31.0-35.0); Mean Corpuscular Hemoglobin 20.3 pg (27.0-33.0); Mean Corpuscular Volume 68.4 fL (80.0-98.0); Mean Platelet Volume 10.1 fL (9.4-12.3); Monocytes Absolute Auto 0.8 X10*3/uL (0.1-1.2); Neutrophils Absolute Auto 5.5 x10*3/uL (2.0-8.3); Neutrophils Percent Auto 46.7 % (45-73); Platelet Count 505 X10*3/uL (160-400); Red Blood Count 4.24 X10*6/uL (4.20-5.50); Red Cell Distribution Width 19.2 % (11.0-16.0); White Blood Count 11.7 X10*3/uL (4.8-10.8)
[2024-04-26 12:10] LABS: Ferritin 8 ng/mL (10-250)
[2024-04-26 12:24] LABS: Folate 8.8 ng/mL (> or = 4.0); Vitamin B12 465 pg/mL (200-900)
[2024-04-26 12:31] LABS: Anion Gap 11 (12-20)
[2024-04-26 12:35] LABS: Blood Urea Nitrogen 17 mg/dL (9-16); Calcium 9.7 mg/dL (8.4-10.2); Carbon Dioxide 25 mmol/L (22-29); Chloride 108 mmol/L (96-108); Estimated Glomerular Filt Rate 55; Glucose Random 106 mg/dL (60-115); Iron 14 mcg/dL (30-160); Percent Iron Saturation 5 % (15-50); Potassium 4.5 mmol/L (3.3-5.1); Sodium 139 mmol/L (135-145); Total Iron Binding Capacity 310 mcg/dL (228-428); Unsaturated Iron Binding 296 ug/dL
== END 2024-04-26 08:47 | disposition home or self-care (01) ==
LOC: HO.HHCL 08:46
PROVIDERS: Visit Provider Internal Medicine
DX: D50.9 Iron deficiency anemia, unspecified (principal); R73.9 Hyperglycemia, unspecified
CPT/HCPCS: 36415; 80048; 82607; 82728; 82746; 83540; 85025